=== PATIENT | female | born 1995 | race Caucasian/White ===

== ENCOUNTER 2022-10-10 09:24 | Emergency (ER) | payer OTHER ==
[~2022-10-10] VITALS: Ht 170.2 cm; Wt 76.7 kg
== END 2022-10-10 10:40 | disposition home or self-care (01) ==
LOC: ER 09:24
DX: J06.9 Acute upper respiratory infection, unspecified (principal); Z88.8 Allergy status to other drugs, medicaments and biological substances

== ENCOUNTER 2023-07-25 00:32 | Outpatient (CLI) | payer OTHER ==
[~2023-07-25] VITALS: Ht 170.2 cm; Wt 86.2 kg
== END 2023-07-25 09:45 | disposition home or self-care (01) ==
LOC: OBS/DEL 00:32
PROVIDERS: ATTEND Obstetrics & Gynecology Gynecology
DX: O26.893 Other specified pregnancy related conditions, third trimester (principal); Z3A.34 34 weeks gestation of pregnancy